=== PATIENT | female | born 1950 | race Caucasian/White ===

== ENCOUNTER 2023-02-26 08:44 | Outpatient (CLI) | payer MEDICARE, OTHER, SELFPAY ==
--- NOTE | 2023-02-26 12:30 | CRLHL7_ITS ---
For Patients: As a result of the Century Cures Act, medical imaging exams and procedure reports are released immediately into your electronic medical record. You may view this report before your referring provider. If you have questions, please contact your health care provider. SOLID PHASE GASTRIC EMPTYING STUDY, 02/26/2023 CLINICAL HISTORY: 73-year-old female. Nausea and abdominal pain. Loss of appetite. Gastric bypass surgery in 2003. Evaluate gastric emptying. TECHNIQUE: 1.09 mCi of [id number] colloid was administered orally in 4 ounces of Egg Beaters with one slice of bread and two tablespoons of strawberry jam and 4 ounces of juice or water. Images of the stomach and abdomen were obtained in the anterior and posterior projections for 4 hours. FINDINGS: TIME % ACTIVITY REMAINING 0 minutes 100.0 60 minutes 10.9 90 minutes 7.0 120 minutes 6.2 240 minutes 5.2 IMPRESSION: The half-time of gastric emptying is between 0-60 minutes. This is within normal limits. JESSI QUEEN M.D. Transcribed: 4:05 p.m. [email or web address] normaj/Dictated by: Jessi Queen MD @ 02/26/2023 2:11:00 PM (Electronically Signed)
== END 2023-02-26 08:45 | disposition home or self-care (01) ==
PROVIDERS: PCP Internal Medicine; Visit Provider Nurse Practitioner Psychiatric/Mental Health
DX: R10.84 Generalized abdominal pain (principal); R11.0 Nausea; R63.0 Anorexia
CPT/HCPCS: 78264; A9541